=== PATIENT | male | born 1940 | race Caucasian/White ===

== ENCOUNTER → 2025-01-22 | Day surgery (SDC) | payer MEDICARE ==
[~2025-01-22] MED LIST: PROPOFOL 10 MG/ML 20 ML VIAL IV ONE
[2025-01-22] MEDS: IV FLUID CONTINUATION 1,000 ML IV ONE (13:55)
[2025-01-22 13:57] LABS: Glucose,Whole Blood 88 mg/dL (70-110)
[2025-01-22] MEDS: LACTATED RINGERS 1,000 ML IV SCH (13:58)
[2025-01-22 14:01] VITALS: RESP 16; TEMP 98.2
[2025-01-22 15:15] VITALS: BP 139/73; PULSE 57
--- NOTE | 2025-01-24 16:47 | P.PCN ---
Date of Procedure: 01/22/25 Preoperative Diagnosis: Rectal bleeding Postoperative Diagnosis: Ascending colon polyp Internal hemorrhoids Procedure(s) Performed: Colonoscopy with forcep polypectomy Anesthesia: MAC Surgeon: Kaden Bermudez Pathology: other (Ascending colon polyp) Condition: stable Disposition: same day Indications for Procedure: 84-year-old male presents today secondary to rectal bleeding. He was treated outpatient for hemorrhoids and has had some improvement, however continues to have some rectal bleeding. Plan is for colonoscopy for further evaluation. Risks, benefits and alternatives were provide to the patient. Operative Findings: Internal hemorrhoids Ascending colon polyp Description of Procedure: The patient was brought to the endoscopy suite and placed in left lateral decubitus position and adequate sedation was achieved using conscious sedation. Digital rectal exam was performed and mild internal hemorrhoids were palpated. An endoscope was then placed in the rectum and advanced to the cecum as identified by landmarks including the appendiceal orifice and the ileocecal valve. The prep was good. The colonoscope was then slowly withdrawn, examining for any mucosal abnormalities. The cecum, ascending, transverse, descending and sigmoid colon were visualized adequately. There were no large neoplastic lesions noted throughout the colon. Small polyp was noted in the ascending colon this was removed with forcep polypectomy. Mild amount of diverticulosis noted throughout the colon. Hemostasis was maintained. Retroflexion was performed in the rectum and mild internal hemorrhoids. Excess air was removed, the colonoscope withdrawn and the procedure terminated. The patient was then transferred to the recovery unit in stable condition. Repeat colonoscopy should be performed based on symptoms due to the patient's age.
== END ==
LOC: ORWHC2ENDO 13:15
PROVIDERS: ATTEND Surgery
DX: D12.2 Benign neoplasm of ascending colon (principal); K64.8 Other hemorrhoids; I10 Essential (primary) hypertension; E11.9 Type 2 diabetes mellitus without complications; E07.9 Disorder of thyroid, unspecified; N28.9 Disorder of kidney and ureter, unspecified; K21.9 Gastro-esophageal reflux disease without esophagitis; Z89.231 Acquired absence of right shoulder; Z89.232 Acquired absence of left shoulder; Z89.521 Acquired absence of right knee; Z89.522 Acquired absence of left knee; Z79.82 Long term (current) use of aspirin; Z79.890 Hormone replacement therapy; Z79.84 Long term (current) use of oral hypoglycemic drugs; Z79.899 Other long term (current) drug therapy
CPT/HCPCS: 88305; 45380; J2704